=== PATIENT | male | born 1995 | race Caucasian/White ===

== ENCOUNTER 2018-12-30 20:19 | Emergency (ER) | payer BC ==
[2018-12-30 20:30] VITALS: BP 146/69
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
[2018-12-30 22:55] LABS: APPEARANCE,URINE SLIGHTLY-CLOUDY; BILIRUBIN,URINE NEGATIVE (NEGATIVE); COLOR,URINE YELLOW; GLUCOSE, URINE NEGATIVE (NEGATIVE); KETONES,URINE 20 mg/dL (NEGATIVE); LEUKOCYTE ESTERASE,URINE NEGATIVE (NEGATIVE); NITRITE,URINE NEGATIVE (NEGATIVE); PROTEIN,URINE NEGATIVE (NEGATIVE); URINE SPECIFIC GRAVITY 1.023; UROBILINOGEN,URINE NEGATIVE mg/dL (<2.0)
--- NOTE | 2018-12-30 23:07 | RADIOLOGY REPORT (SQ) ---
EXAM DESCRIPTION: US SCROTUM COMPLETED DATE/TME: 12/30/2018 22:13 CLINICAL HISTORY: 23 years Male, Contusion to scrotum noon pain since 4 Comparison: None. LIMITATIONS: None. FINDINGS: Small bilateral hydroceles, right more than left. 4.4-cm right testis, 4.7-cm left testis, epididymides, and scrotal structures appear normal in size, shape, echotexture, and vascularity. No evidence of testicular mass. No evidence of testicular torsion IMPRESSION: Small bilateral hydroceles. Normal testes.
== END 2018-12-31 00:52 | disposition left against medical advice (07) ==
LOC: ER 20:19
DX: N50.812 Left testicular pain (principal)
CPT/HCPCS: 76870; 81001; 99281